=== PATIENT | male | born 1990 | race Caucasian/White ===

== ENCOUNTER 2020-02-24 22:06 | Emergency (ER) | payer OTHER, SELFPAY ==
[2020-02-24 22:07] VITALS: BP 144/90; PULSE 111; RESP 16; TEMP 36.6; O2SAT 94; BMI 26.6
--- NOTE | 2020-02-24 22:22 | ED.VIS.GEN ---
History of Present Illness Chief Complaint: Substance Abuse Informant: Patient Narrative: Patient presents with detox request. He drinks alcohol daily. He has been alcoholic for over 10 years. Denies illegal drug use. Positive smoker. Drinks alcohol today. and family were able to get him to come in for further evaluation and detox and to try to get clean. Current severity is not applicable. Past Medical History - Allergies and Home Meds Allergies/Adverse Reactions: Allergies No Known Allergies Allergy (Verified 02/24/20 22:07) Prior records reviewed: Yes Past Medical History: - - Alcoholism Surgical History: noncontributory Lives: With Family Smoking Status: Former smoker Alcohol: Heavy Drugs: None Review of Systems General: Denies: Chills, Fever, Sweats Eyes: Denies: Visual changes - bilaterally, Diplopia ENT: Denies: Rhinorrhea, Sore throat Cardiovascular: Denies: Chest pain, Palpitations Respiratory: Denies: Dyspnea, Cough, Dyspnea on exertion Gastrointestinal: Denies: Abdominal pain, Nausea, Vomiting, Diarrhea, Melena, Hematochezia Genitourinary: Denies: Dysuria, Hematuria, Frequency Musculoskeletal: Denies: Back pain, Extremity Pain Skin: Denies: Rash, Wounds Neurological: Denies: Headache, Weakness, Numbness Physical Exam Vital Signs/Narrative: Vital Signs Temp Pulse Resp BP Pulse Ox 02/24/20 22:07 97.9 F 111 H 16 144/90 H 94 General: Well nourished, Well developed, No Acute Distress Head: Normocephalic, Atraumatic Eyes: Perrl, EOMI ENT: Moist mucous membranes, No rhinorrhea Neck: Supple, Nontender Cardiovascular: Regular rate, Regular rhythm, No murmurs Respiratory: No distress, CTA bilaterally, Chest nontender Abdomen: Soft, Nontender, Nondistended, Normal bowel sounds Back: Nontender, Normal Inspection Extremities: Nontender, No edema Skin: Normal color, No rash Neurological: Alert, Oriented x3, Cranial nerves II-XII grossly intact, Normal Strength, Normal Sensation, - - Intoxicated with alcohol Psychological: Normal affect, Normal Mood Diagnostic/Tx/Re-eval - Medical Decision Making Requesting to detox. Lab work obtained. Will be discussed with the hospitalist for admission for alcohol detox. Alcohol level was 446. CBC and CMP otherwise grossly unremarkable. Liver function test normal. Toxicology screen normal ED Disposition - Plan for ED Patient: Disposition: Acute Care Hospital [facility] Diagnosis: Alcoholism, Acute alcohol intoxication
[2020-02-24 23:14] LABS: Amphetamine Urine VISTA NEGATIVE (<1000 ng/mL); Barbiturate Urine VISTA NEGATIVE (< 200 ng/mL); Benzodiazepine Urine VISTA NEGATIVE (< 200 ng/mL); Cocaine Urine VISTA NEGATIVE (< 300 ng/mL); Ecstacy Urine VISTA NEGATIVE (< 500 ng/mL); Methadone Urine VISTA NEGATIVE (< 300 ng/mL); PCP Urine VISTA NEGATIVE (< 25 ng/mL); THC Urine VISTA NEGATIVE (< 50 ng/mL); Vista UDS pH Range 6
[2020-02-24 23:17] LABS: Absolute Lymphocyte Count 2.13 X10^3/uL (0.83-4.51); Absolute Neutrophil Count 2.4 X10^3/uL (2.0-7.7); Basophil# 0.03 X10^3/uL; Basophil% 0.6 % (0-1); Eosinophil# 0.17 X10^3/uL; Eosinophils% 3.4 % (0-5); Lymphocyte # 2.13 X10^3/ul (4.0); Lymphocyte % 42.5 % (19-41); Mean Corp Hgb Conc 35.6 g/dL (32-36); Mean Corpuscular Hgb 32.8 pg (27.0-32.0); Mean Corpuscular Volume 92.2 fL (80-94); Monocyte# 0.24 X10^3/uL; Monocyte% 4.8 % (0-10); NRBC Flagged by Analyzer 0 % (0-5); Neutrophil # 2.43 X10^3/uL (2.7-7.7); Neutrophil % 48.5 % (47-70); Platelet Count 307 K/mm3 (150-450); RBC Distribution Width CV 11.3 % (11.6-14.6); RBC Distribution Width SD 37.8 fl (35.1-43.9); Red Blood Count 4.88 M/mm3 (4.6-6.2)
--- NOTE | 2020-02-24 23:19 | ED.RN ---
reviewed care agreement with and pt. pt is intoxicated, scribbled his name on paper, signed as well stating that the paper was reviewed with her and pt.
[2020-02-24 23:38] LABS: ALB/GLOB Ratio 1.5 RATIO (0.9-2.4); AST(SGOT) 31 U/L (15-37); Alanine Aminotransfer ALT/SGPT 38 U/L (16-61); Albumin, Serum 4.4 g/dL (3.2-5.0); Alkaline Phosphatase 64 U/L (45-117); Anion Gap 11 (5-15); BUN 4 mg/dL (7-18); BUN/Creat Ratio 4.4 RATIO (10-20); Calcium,Total 7.9 mg/dL (8.5-10.1); Chloride 107 mmol/L (98-107); EST Glomerular Filtration Rate 105 mL/min (>60); Est Glom Filt Rate - Afr Amer 128 mL/min (>60); Estimated Creatinine Clearance 128.99 ml/min; Glucose 125 mg/dL (74-106); Potassium 3.8 mmol/L (3.5-5.1); Protein, Total 7.4 g/dL (6.4-8.2); Sodium Level 142 mmol/L (136-145)
[2020-02-25 00:42] VITALS: BP 114/55; PULSE 80; RESP 16; O2SAT 92
--- NOTE | 2020-02-25 01:24 | PCM.PN.BLA ---
Progress Note Paged to admit patient. Case was discussed with emergency department doctor. Reportedly patient's family encourage patient to come to the hospital for detoxification from alcohol. Patient was seen. Patient appears very intoxicated. Patient was sleeping. Advised emergency department doctor that when patient is no longer intoxicated detoxification can be started. STROKE Vital Signs/Narrative: Vital Signs Temp Pulse Resp BP Pulse Ox 02/25/20 00:42 80 16 114/55 L 92 02/24/20 22:07 97.9 F 111 H 16 144/90 H 94
[2020-02-25 02:00] VITALS: RESP 14
[2020-02-25 04:24] VITALS: PULSE 80; RESP 14
--- NOTE | 2020-02-25 07:06 | HP.PCM_ITS ---
History of Present Illness Date of Admission: 02/25/20 Chief Complaint: Acute alcohol withdrawal/detox The patient is a 29 year old M [] Past Medical History Allergies No Known Allergies Allergy (Verified 02/24/20 22:07) Home Medications: Ambulatory Orders Medication Instructions Recorded No Known/Unobtainable [No Known 08/15/15 Home Medications] Surgical History: noncontributory Lives: With Family Smoking Status: Current every day smoker Alcohol: Heavy Drugs: None Patient Problems: Active and Suspected Problems Alcoholism (Acute) Acute alcohol intoxication (Acute) - Physical Exam Vitals/I&O's: Vital Signs Temp Pulse Resp BP Pulse Ox 97.9 F 80 14 114/55 L 92 02/24/20 22:07 02/25/20 04:24 02/25/20 04:24 02/25/20 00:42 02/25/20 00:42 Oxygen Delivery Method Room Air Weight: 190 lb 14.725 oz Body Mass Index (BMI) 26.6 Laboratory Results 02/24/20 22:40: Urine Opiates Screen NEGATIVE, Urine Methadone Screen NEGATIVE, Ur Barbiturates Screen NEGATIVE, Ur Phencyclidine Scrn NEGATIVE, Ur Amphetamines Screen NEGATIVE, U Methamphetamin-MDMA NEGATIVE, U Benzodiazepines Scrn NEGATIVE, Urine Cocaine Screen NEGATIVE, U Cannabinoids Screen NEGATIVE, Ur Drug Screen Comment 02/24/20 23:10: WBC 5.0, RBC 4.88, Hgb 16.0, Hct 45.0, MCV 92.2, MCH 32.8 H, MCHC 35.6, RDW Std Deviation 37.8, RDW Coeff of [place] 11.3 L, Plt Count 307, MPV 10.0, Immature Gran % (Auto) 0.200, Neut % (Auto) 48.5, Lymph % (Auto) 42.5 H, [place] % (Auto) 4.8, Eos % (Auto) 3.4, Baso % (Auto) 0.6, Absolute Neuts (auto) 2.4, Absolute Lymphs (auto) 2.13, Nucleated RBC % 0 02/24/20 23:10: Sodium 142, Potassium 3.8, Chloride 107, Carbon Dioxide 24.0, Anion Gap 11, BUN 4 L, Creatinine 0.90, Estim Creat Clear Calc 128.99, Est GFR (MDRD) Af Amer 128, Est GFR (MDRD) Non-Af 105, BUN/Creatinine Ratio 4.4 L, Glucose 125 H, Calcium 7.9 L, Total Bilirubin 0.40, AST 31, ALT 38, Alkaline Phosphatase 64, Total Protein 7.4, Albumin 4.4, Globulin 3.0, Albumin/Globulin Ratio 1.5 02/24/20 23:10: Ethyl Alcohol 446.0 H* Assessment/Plan All Active Problems Alcoholism (Acute) Acute alcohol intoxication (Acute)
--- NOTE | 2020-02-25 07:57 | ED.RN ---
pt alert and has no recall of last night getting here or agreeing to detox. states i had a dream that i talked my family out of coming here and then i wake up and im here. pt reluctant to do detox. concerns about work and having to talk to them about it. dr gaytan at bedside and discussed HIPPA and plan of care. dangers of ETOH withdrawl and safety. pt requesting to call and talk with prior to agreeing to admission. given portable phone, talking with at this time.
[2020-02-25 08:01] VITALS: BP 132/86; PULSE 89; RESP 16; O2SAT 99
--- NOTE | 2020-02-25 08:12 | ED.RN ---
pt talked with . choosing not to stay. dr gaytan/supervisor pleating notified. dr guardado. pt to be dc home
--- NOTE | 2020-02-25 13:21 | PCM.HOSP.N ---
Hospitalist Note Contacted per ED as patient more alert and amenable to program. Evaluated and admission orders placed. Patient upon evaluation noting he wanted to discuss admission with his first. Noted concern about being out of work x 3 days. Patient left from ED despite encouragement. His strongly encouraged him to remain. They have a 13 week old baby at home and he noted concerns about not being present for 3 days also.
== END 2020-02-25 08:23 | disposition short-term general hospital (02) ==
PROVIDERS: Emergency Provider Emergency Medicine; PCP Family Medicine; Visit Provider Family Medicine
DX: F10.20 Alcohol dependence, uncomplicated (principal); F17.210 Nicotine dependence, cigarettes, uncomplicated
CPT/HCPCS: 36415; 80053; 80307; 80320; 85025; 99282; G0480

== ENCOUNTER → 2020-05-15 | Outpatient (CLI) | payer OTHER, SELFPAY | END | disposition home or self-care (01) | PROVIDERS: PCP Family Medicine; Referring Provider Family Medicine; Visit Provider Family Medicine | DX: Z20.828 Contact with and (suspected) exposure to other viral communicable diseases (principal) | CPT/HCPCS: 87635; U0003 ==

== ENCOUNTER 2021-01-19 22:11 | Emergency (ER) | payer OTHER, SELFPAY ==
[2021-01-19 22:12] VITALS: BP 126/77; PULSE 74; RESP 18; TEMP 36.3; O2SAT 100; BMI 24.4
--- NOTE | 2021-01-19 22:34 | EX.ED.DYSGE1 ---
HPI History of Present Illness Chief Complaint: General Illness Narrative Narrative: Patient presents with intoxication from CBD. He bought some CBD oil online and used it several hours ago. He is feeling the effects of it. He normally eats Gummies and use a sublingual oil for the first time. He feels overly relaxed and funny in his head. He denies any chest pain or shortness of breath or other symptoms. No nausea or vomiting. Denies any other illicit drug use. Does not use marijuana. Does not feel high just feels strange and has had from the use of CBD PFSH PFSH Home Medications No Known/Unobtainable [No Known Home Medications] 08/15/15 [History Last Taken Unknown] Allergy/AdvReac Type Severity Reaction Status Date / Time No Known Allergies Allergy Verified 01/19/21 22:14 Social History Smoking Status: Current every day smoker ROS ROS ED ROS Narrative ROS General: Denies fever, chills, sweats Eyes: Denies visual changes, blurred vision, double vision ENT: Denies ear pain, rhinorrhea, sore throat Cardiovascular: Denies chest pain, palpitations, heart racing Respiratory: Denies dyspnea, cough, sputum, dyspnea on exertion, orthopnea,PND GI: Denies abdominal pain, nausea, vomiting, diarrhea, constipation, melena : Denies dysuria, hematuria, frequency Musculoskeletal: Denies myalgias, arthralgias, neck pain, back pain Skin: Denies rash, abscess, abrasions Neuro: See HPI Psych: Denies depression, anxiety Endo: Denies polyuria, polydipsia, polyphagia Heme: Denies easy bruising, easy bleeding, lymphadenopathy Allergy: Denies hives, swelling EXAM Physical Exam Narrative Exam Narrative: Vital signs reviewed General: Well-nourished well-developed Head: Normocephalic atraumatic Eyes: Pupils equal round and reactive to light extraocular movements intact ENT: TMs clear no hemotympanum no trauma Neck: Nontender full range of motion Cardiovascular: Regular rate rhythm no murmurs normal S1-S2 Respiratory: No distress clear to auscultation bilaterally chest nontender Abdomen: Soft nontender nondistended normal bowel sounds no masses Back: Nontender no CVA tenderness Extremities: Nontender active range of motion ?4 extremities no trauma Skin: Normal color no trauma Neuro alert oriented cranial nerves II through XII intact normal strength sensation reflexes Const Vital Signs: 01/19/21 22:12 Temperature 97.3 F L Temperature Source Temporal Pulse Rate 74 Respiratory Rate 18 Blood Pressure 126/77 H Blood Pressure Mean 93 Pulse Ox 100 Oxygen Delivery Method Room Air MDM MDM MDM Narrative Medical decision making narrative: Patient reassured. He has normal vital signs. I suspect he just has CBD intoxication. We will follow-up as an outpatient. Instructed not to use in this quantity or fashion in the future Discharge Plan Triage Chief Complaint: General Illness ED Provider: Cyrus Becerril Dx/Rx/DC Orders Clinical Impression: Acute drug intoxication Instructions: ED Drug Reaction, Other Prescriptions: No Action No Known Home Medications RF: 0 Primary Care Provider: Denny Villavicencio Referrals: Denny Villavicencio MD [Primary Care Provider] - Disposition Disposition: Home, self care
[2021-01-19 22:50] VITALS: RESP 18
== END 2021-01-19 22:53 | disposition home or self-care (01) ==
LOC: ED 22:47
PROVIDERS: Emergency Provider Emergency Medicine; PCP Family Medicine
DX: F12.929 Cannabis use, unspecified with intoxication, unspecified (principal); F17.200 Nicotine dependence, unspecified, uncomplicated
CPT/HCPCS: 99282

== ENCOUNTER → 2021-05-01 13:02 | Outpatient (CLI) | payer OTHER, SELFPAY | LOC: LAB 13:05 → MTLAB 13:05 | PROVIDERS: PCP Family Medicine; Referring Provider Family Medicine; Visit Provider Family Medicine | DX: U07.1 COVID-19 (principal) | CPT/HCPCS: 36415; 86769 ==

== ENCOUNTER → 2022-07-06 | Outpatient (CLI) | payer OTHER, SELFPAY ==
[2022-07-14 14:09] LABS: Beef <0.10 kU/L (Class 0); Clam <0.10 kU/L (Class 0); Codfish <0.10 kU/L (Class 0); Corn <0.10 kU/L (Class 0); Crab <0.10 kU/L (Class 0); Egg, White <0.10 kU/L (Class 0); Gluten <0.10 kU/L (Class 0); Lobster <0.10 kU/L (Class 0); Milk (Cow) <0.10 kU/L (Class 0); Peanut <0.10 kU/L (Class 0); SCALLOP <0.10 kU/L (Class 0); SESAME SEED <0.10 kU/L (Class 0); Salmon <0.10 kU/L (Class 0); Shrimp <0.10 kU/L (Class 0); Soybean <0.10 kU/L (Class 0); Walnut, (Food) <0.10 kU/L (Class 0); Wheat <0.10 kU/L (Class 0); Yeast <0.10 kU/L (Class 0)
[2022-07-14 16:34] LABS: Banana <0.10 kU/L (Class 0)
== END | disposition home or self-care (01) ==
LOC: LAB 09:06
PROVIDERS: PCP Family Medicine; Referring Provider Otolaryngology Otolaryngology/Facial Plastic Surgery; Visit Provider Otolaryngology Otolaryngology/Facial Plastic Surgery
DX: T78.40XA Allergy, unspecified, initial encounter (principal); X58.XXXA Exposure to other specified factors, initial encounter
CPT/HCPCS: 36415; 86003

== ENCOUNTER → 2022-08-11 | Outpatient (CLI) | payer OTHER, SELFPAY ==
[2022-08-11 12:14] LABS: Absolute Lymphocyte Count 0.91 X10^3/uL (0.83-4.51); Absolute Neutrophil Count 2.4 X10^3/uL (2.0-7.7); Basophil# 0.02 X10^3/uL; Basophil% 0.6 % (0-1); Eosinophil# 0.04 X10^3/uL; Eosinophils% 1.1 % (0-5); Hematocrit 40.8 % (40-54); Hemoglobin 14.7 g/dL (13.0-16.5); Lymphocyte # 0.91 X10^3/ul (0.83-4.51); Lymphocyte % 25.1 % (19-41); Mean Corpuscular Hgb 32.5 pg (27.0-32.0); Mean Corpuscular Volume 90.3 fL (80-94); Mean Platelet Vol. 11.6 fl (6.2-12.0); Monocyte# 0.26 X10^3/uL; Monocyte% 7.2 % (0-10); NRBC Flagged by Analyzer 0 % (0-5); Neutrophil # 2.39 X10^3/uL (2.7-7.7); Neutrophil % 65.7 % (47-70); Platelet Count 259 K/mm3 (150-450); RBC Distribution Width SD 36.7 fl (35.1-43.9); Red Blood Count 4.52 M/mm3 (4.6-6.2); White Blood Count 3.6 K/mm3 (4.4-11.0)
[2022-08-11 12:31] LABS: ALB/GLOB Ratio 1.6 RATIO (0.9-2.4); AST(SGOT) 40 U/L (15-37); Alanine Aminotransfer ALT/SGPT 42 U/L (16-61); Albumin, Serum 4.2 g/dL (3.2-5.0); Alkaline Phosphatase 40 U/L (45-117); Anion Gap 8 (5-15); BUN 7 mg/dL (7-18); BUN/Creat Ratio 7.3 RATIO (10-20); Calcium,Total 8.6 mg/dL (8.5-10.1); Chloride 101 mmol/L (98-107); Creatinine, Serum 0.96 mg/dL (0.70-1.30); EST Glomerular Filtration Rate 97 mL/min (>60); Est Glom Filt Rate - Afr Amer 117 mL/min (>60); Globulin 2.7 g/dL (2.2-4.2); Glucose 107 mg/dL (74-106); Potassium 4.4 mmol/L (3.5-5.1); Protein, Total 6.9 g/dL (6.4-8.2); Sodium Level 135 mmol/L (136-145)
== END | disposition home or self-care (01) ==
LOC: BFHLAB 09:16
PROVIDERS: PCP Family Medicine; Visit Provider Family Medicine
DX: Z00.00 Encounter for general adult medical examination without abnormal findings (principal)
CPT/HCPCS: 36415; 80053; 85025

== ENCOUNTER → 2022-12-16 | Outpatient (CLI) | payer OTHER, SELFPAY ==
--- NOTE | 2022-12-16 07:45 | MRI_ITS ---
STUDY: MRI LUMBAR SPINE WITHOUT CONTRAST REASON FOR EXAM: Male, 32 years old. RIGHT foot drop, LBP TECHNIQUE: Standardized fat and water weighted pulse sequences were obtained in the sagittal and axial planes. COMPARISON: X-ray the lumbar spine dated December 10, 2022 FINDINGS: Normal lumbar lordosis. There is no substantial scoliosis. Normal conus medullaris that terminates at the L1 level. No marrow edema or fracture or compression deformity is seen. T12-L1: Normal endplates. Normal disc height, hydration and morphology. Normal bilateral facet joints. Normal central canal and bilateral lateral recesses. Normal bilateral intervertebral neural foramina. L1-2: Normal endplates. Normal disc height, hydration and morphology. Normal bilateral facet joints. Normal central canal and bilateral lateral recesses. Normal bilateral intervertebral neural foramina. L2-3: Normal endplates. Normal disc height, hydration and morphology. Normal bilateral facet joints. Normal central canal and bilateral lateral recesses. Normal bilateral intervertebral neural foramina. L3-4: Normal endplates. Normal disc height, hydration and morphology. Normal bilateral facet joints. Normal central canal and bilateral lateral recesses. Normal bilateral intervertebral neural foramina. L4-5: Normal endplates. Diffuse disc desiccation with mild to moderate posterior disc space narrowing resulting in broad-based disc herniation. Posterior annular tear of the disc also noted. Mild central canal stenosis and bilateral lateral recess stenosis. Mild facet joint hypertrophy and bilateral foraminal stenosis. L5-S1: Mild Modic endplate degenerative signal. Disc desiccation and mild posterior disc space narrowing results in a midline to right paracentral disc protrusion causing right lateral recess stenosis and impingement on the descending nerve root. Normal central canal and left lateral recess. Mild facet joint hypertrophy. Moderate right foraminal stenosis with nerve root impingement secondary to facet joint hypertrophy. Normal left neural foramen. Normal visualized sacral ala. Normal visualized paraspinous soft tissue structures. MRI/Spine Lumbar (Routine) IMPRESSION: 1. L4-L5 and L5-S1 degenerative disc disease 2. Mild central canal stenosis at L4-L5 3. Right lateral recess stenosis with nerve root impingement at L5-S1 4. L5-S1 moderate right foraminal stenosis with nerve root compression Electronically Signed: Rip Westbrook MD at 12:35 EDT ,
== END | disposition home or self-care (01) ==
PROVIDERS: PCP Family Medicine; Referring Provider Orthopaedic Surgery; Visit Provider Orthopaedic Surgery
DX: M21.371 Foot drop, right foot (principal); M51.37 Other intervertebral disc degeneration, lumbosacral region; M48.07 Spinal stenosis, lumbosacral region
CPT/HCPCS: 72148

== ENCOUNTER 2023-09-23 16:00 | Outpatient (RCR) | payer OTHER, SELFPAY ==
--- NOTE | 2023-09-15 11:23 | HP.PTEVAL_ITS ---
Patient's Visit Information Visit Information Visit Information: TREY GRIMES is a 33 year old M referred to Physical Therapy by Dr. Primo Hunter DO with a diagnosis of OTHER INTERVERTBRAL DISC DEGENERATION. Date of Evaluation: 09/15/23 Physical Therapist: Ishaan Weaver, PT, Cert MDT, OCS Visit Plan Frequency: 1-2x /Week Duration: 4 Weeks Plan: PT INTERVETIONS BIGG EX'S ,DLS ,POSTURAL EX'S ,POSTURE/BODY MECHANICS AND MANUAL THERAPY Subjective Subjective: This 33 y/o male presents to physical therapy with low back. Patient has had lumbar pain Jun 27 2023 . Patient injury strained lumbar reaching in crib to filler picker new born. Seen Dr referred DR Jerez had MRI showed mod foraminal stenosis and bulging. Try to manage pain on own . Recently seen family DR due to symptoms getting. Location of pain right lumbar. Patient has stiffness tightness . Patient initially wanted see DR Jerez with foot drop . But foot drop improved. Aggregating factors bending ,lifting ,sitting . Patient better with walking/standing. Coughing/sneezing. Bowel/bladder-. Denies paresthesia/tingling -. Sleeping cam keep patient up. Alleviating factors e xtension. Patient has no pain management . Patient goals to affects function. Patient goals to decrease pain. VOCATION: [employer] SOCIAL: Pain Right Back: Pain Intensity (Out of 10): 5 Pain Intensity Range: 10 Objective Objective: POSTURE:WFL SYMMTRICAL: align PALAPTION: unremarkable NEURO: myotome weakness right leg ,reflexes L-3-4,L4-L5 ,L5-S1 2/3 FLEXABILITY: hamstrings min tight MMT: right quads/hams/hip /ankle 4/5 ,left 5/5 shaky on right LUMBAR ROM: flexion min loss ,extension min loss ,side glides min loss Special Tests L/S Slump test left side: Negative L/S Slump test right side: Positive L/S Left Straight Leg Raise: Negative L/S Right Straight Leg Raise: Negative Lumbar Standing: Flexion - Mechanical Response: No effect Lumbar Standing: Flexion - Symptoms During Testing: Increases Lumbar Standing: Flexion - Symptoms After Testing: Worse Lumbar Standing: Extension - Mechanical Response: No effect Lumbar Standing: Extension - Symptoms During Testing: Increases Lumbar Standing: Extension - Symptoms After Testing: No worse Lumbar Standing: Right Side Glides - Mechanical Response: No effect Lumbar Standing: Right Side [place] - Symptoms During Testing: No effect Lumbar Standing: Right Side [place] - Symptoms After Testing: No effect Lumbar Standing: Left Side [place] - Mechanical Response: No effect Lumbar Standing: Left Side [place] - Symptoms During Testing: No effect Lumbar Standing: Left Side [place] - Symptoms After Testing: No effect Lumbar Lying: Flexion - Mechanical Response: No effect Lumbar Lying: Flexion - Symptoms During Testing: Increases Lumbar Lying: Flexion - Symptoms After Testing: Worse Lumbar Lying: Extension - Mechanical Response: No effect Lumbar Lying: Extension - Symptoms During Testing: Decreases Lumbar Lying: Extension - Symptoms After Testing: Better Balance/Special Test Scores Oswestry Low Back Score: 22 Goals Goal 1:: Patient to be I with HEP Goal Time Frame: 4-6 Weeks Goal 2:: Patient to improve posture/body mechanics 90 % of the time. Goal Time Frame: 4-6 Weeks Goal 3:: Patient to improve lumbar ROM for function of recovery to lift patients children Goal Time Frame: 4-6 Weeks Goal 4:: Patient to demonstrate 70% improvement with less pain and improved f unction Goal Time Frame: 4-6 Weeks Goal 5:: Patient to improve back oswestry score by 5 points to improve QOL and function Goal Time Frame: 4-6 Weeks Rehabilitation Potential Physical Therapy Diagnosis: This patient has derangement with disc bulge and and mod foraminal stenosis with pain with motion testing and positioning ,worse with sitting better with extension better with walking and correction of posture thus benefit from skilled PT Rehabilitation Potential: Good Anticipated Interventions Patient/Client Instruction: Educate patient on: Condition and Plan of Care For the Purpose of:: To decrease pain, To increase ROM, To improve muscle performance and motor function, To improve ability to perform ADL's, To increase tolerance to activity/condition/position, To improve ability of physical actions for home/community/work/leisure, To improve health of tissue, To decrease soft tissue restriction, To increase flexibility/ROM, To improve endurance, To reduce risk of recurrence and To improve tolerance to ADL's Therapeutic Exercise to Include: Strength training, Endurance training, Balance training, Body mechanics, Postural training, Flexibilty training, Dynamic Lumbar Stabilization and Bigg Exercises For the Purpose of:: To decrease pain, To improve muscle performance and motor function, To improve ability to perform ADL's, To increase tolerance to activity/condition/position, To improve ability of physical actions for home/community/work/leisure, To improve health of tissue, To decrease soft tissue restriction, To increase flexibility/ROM, To improve endurance, To reduce risk of recurrence and To improve tolerance to ADL's Manual Therapy Techniques to Include: Manual lymph drainage For the Purpose of:: To decrease pain, To increase ROM, To improve ability of physical actions for home/community/work/leisure, To improve health of tissue, To decrease soft tissue restriction and To increase flexibility/ROM TENS: Yes IF ES: Yes Cryotherapy (ice pack, ice massage): Yes Thermo therapy (hot pack): Yes Ultrasound (thermal/non thermal): Yes For the Purpose of:: To decrease pain Text: Thank you for the opportunity to evaluate your patient. For Medicare and Medicare HMO plans, please review the plan of care and approve it. It will need to be FAXED BACK to us at [phone] for Medicare purposes. For Medicare only, by signing this I certify the plan of care. Please let me know if there are questions or concerns regarding this plan of care. Physician Signature: Date:
--- NOTE | 2023-12-20 16:47 | HP.PT.NRP ---
Patient Information Patient Information: TREY GRIMES was seen in my office for initial evaluation on 09/15/23. The following Plan of Care was established for this patient: POC Established Initial Frequency: 1-2x /Week Initial Duration: 4 Weeks Anticipated Interventions Patient/Client Instruction: Educate patient on: Condition and Plan of Care For the Purpose of:: To decrease pain, To increase ROM, To improve muscle performance and motor function, To improve ability to perform ADL's, To increase tolerance to activity/condition/position, To improve ability of physical actions for home/community/work/leisure, To improve health of tissue, To decrease soft tissue restriction, To increase flexibility/ROM, To improve endurance, To reduce risk of recurrence and To improve tolerance to ADL's Therapeutic Exercise to Include: Strength training, Endurance training, Balance training, Body mechanics, Postural training, Flexibilty training, Dynamic Lumbar Stabilization and [place]ila Exercises For the Purpose of:: To decrease pain, To improve muscle performance and motor function, To improve ability to perform ADL's, To increase tolerance to activity/condition/position, To improve ability of physical actions for home/community/work/leisure, To improve health of tissue, To decrease soft tissue restriction, To increase flexibility/ROM, To improve endurance, To reduce risk of recurrence and To improve tolerance to ADL's Manual Therapy Techniques to Include: Manual lymph drainage For the Purpose of:: To decrease pain, To increase ROM, To improve ability of physical actions for home/community/work/leisure, To improve health of tissue, To decrease soft tissue restriction and To increase flexibility/ROM TENS: Yes IF ES: Yes Cryotherapy (ice pack, ice massage): Yes Thermo therapy (hot pack): Yes Ultrasound (thermal/non thermal): Yes For the Purpose of:: To decrease pain Last Seen Last Seen: This patient was last seen in our office . Pertinent comments regarding their Physical therapy will appear below: Patient was seen for PT for back pain with radicular symptoms for sheila ex's with progression of DLS At this point I will be discontinuing this patient from physical therapy. I would be happy to see this patient again in the future if found appropriate by the physician. Thank you! Ishaan Weaver, PT, Cert MDT, OCS Balance/Gait/Functional tests Balance/Special Test Scores Oswestry Low Back Score: 22
== END 2023-09-23 19:00 | disposition home or self-care (01) ==
LOC: PT 16:00
PROVIDERS: PCP Family Medicine; Referring Provider Family Medicine; Visit Provider Family Medicine
DX: M51.36 Other intervertebral disc degeneration, lumbar region (principal)
CPT/HCPCS: 97110; 97162; 97530

== ENCOUNTER 2024-03-12 14:32 | Observation (INO) | payer OTHER, SELFPAY ==
[2024-03-12] VITALS (8 sets, daily range): BP systolic 129–155; BP diastolic 79–94; PULSE 86–112; RESP 16–18; TEMP 36.4–36.7; O2SAT 97–100; BMI 24.0; BMI 22.8
--- NOTE | 2024-03-12 14:54 | EDS_ITS ---
HPI <VERNA Gonzales - Last Filed: 03/12/24 18:48> History of Present Illness Chief Complaint: Substance Abuse Narrative Narrative: 33-year-old male presents to get checked out because he wants to stop using kratom and workout stimulants and was not sure if he could do this at home on his own safely. He orally ingests kratom powder approximately 15 g 4 times a day over the last 6 weeks. He uses it to treat his anxiety and depression. He states he has used it in the past and stopped without withdrawal symptoms except for worsening depression. He also takes supplements called DMMA (1,3- dimethylamylamine) that he buys online and is also prescribed Adderall. [facility] <VERNA Gonzales - Last Filed: 03/12/24 18:48> [facility] Medical History (Updated 03/12/24 @ 18:[address] Sukh Forbes MD) Herniated disc ADHD Home Medications ?Medication ?Instructions ?Recorded ?Last Taken ?Type No Known/Unobtainable [No Known 08/15/15 Unknown History Home Medications] Allergy/AdvReac Type Severity Reaction Status Date / Time No Known Allergies Allergy Verified 03/12/24 14:39 Social History household members: family and children Smoking Status: Current every day smoker tobacco type: e-cigarettes ROS <VERNA Gonzales - Last Filed: 03/12/24 18:48> ROS ED ROS Narrative Constitutional: Negative for fever, chills, malaise. CVS: Negative for chest pain. Respiratory: Negative for shortness of breath. GI: Negative for abdominal pain, nausea, vomiting, diarrhea. EXAM <VERNA Gonzales - Last Filed: 03/12/24 18:48> Physical Exam Narrative Exam Narrative: CONST: Patient sitting in no acute distress. EYES: Normal inspection. NECK: Normal inspection. RESP: No respiratory distress, CTAB. CVS: Regular rate and rhythm, no murmur, no gallop. SKIN: Color normal, no rash, warm, dry, intact. EXTREMITIES: Normal appearance, no pedal edema. NEURO: Alert and answering questions appropriately. PSYCH: Normal affect. Const Vital Signs: 03/12/24 14:32 03/12/24 15:32 03/12/24 16:32 Temperature 97.6 F L Temperature Source Temporal Pulse Rate 112 H 100 108 H Respiratory Rate 16 16 16 Blood Pressure 135/81 H 129/94 H Blood Pressure Mean 99 105 Pulse Ox 100 98 99 Oxygen Delivery Method Room Air Room Air Room Air 03/12/24 17:00 Temperature Temperature Source Pulse Rate 102 H Respiratory Rate 16 Blood Pressure Blood Pressure Mean Pulse Ox 99 Oxygen Delivery Method Room Air <Dr. Sukh Forbes MD - Last Filed: 03/12/24 18:39> Physical Exam Const Vital Signs: 03/12/24 14:32 03/12/24 15:32 03/12/24 16:32 Temperature 97.6 F L Temperature Source Temporal Pulse Rate 112 H 100 108 H Respiratory Rate 16 16 16 Blood Pressure 135/81 H 129/94 H Blood Pressure Mean 99 105 Pulse Ox 100 98 99 Oxygen Delivery Method Room Air Room Air Room Air 03/12/24 17:00 Temperature Temperature Source Pulse Rate 102 H Respiratory Rate 16 Blood Pressure Blood Pressure Mean Pulse Ox 99 Oxygen Delivery Method Room Air MDM <VERNA Gonzales - Last Filed: 03/12/24 18:48> [facility] MDM Narrative Medical decision making narrative: Patient seen and evaluated with BUD. I personally interviewed and examined the patient. I was involved in all aspects of patient's orders, interpretation of results, and treatment. 33-year-old male with history of alcohol abuse but has been sober from that for about 18 months. He is using substance kratom. He is trying to detox himself from that. on the phone states that he gets paranoid when he uses it. Th ey are concerned because they have 2 small children at home about him trying to detox himself at home. Physical exam is a well-appearing 33-year-old male. Vital signs stable afebrile. HEENT exam unremarkable. Neck nontender. Lungs clear to auscultation. Heart regular rhythm rate about 100 no murmur. Chest wall ribs nontender. Moving all 4 extremities. No track quiles. Back nontender. Fiona rologically is awake and alert. No focal motor deficits. Spoke to the hospitalist as well and admit the patient for detox for overnight evaluation. And symptom treatment as needed. Lab Data Labs: Laboratory Results - last 24 hr 03/12/24 15:05 WBC 7.6 RBC 4.79 Hgb 15.1 Hct 41.9 MCV 87.5 MCH 31.5 MCHC 36.0 RDW Std Deviation 36.7 RDW Coeff of Ciera 11.4 L Plt Count 318 MPV 10.4 Immature Gran % (Auto) 0.300 Neut % (Auto) 84.5 H Lymph % (Auto) 10.3 L Bee % (Auto) 4.5 Eos % (Auto) 0.1 Baso % (Auto) 0.3 Absolute Neuts (auto) 6.4 Absolute Lymphs (auto) 0.78 L Nucleated RBC % 0 Sodium 135 L Potassium 3.6 Chloride 101 Carbon Dioxide 27.0 Anion Gap 7 BUN 9 Creatinine 1.25 Estim Creat Clear Calc 89.52 Est GFR (MDRD) Af Amer 85 Est GFR (MDRD) Non-Af 70 BUN/Creatinine Ratio 7.2 L Glucose 127 H Calcium 8.8 Total Bilirubin 0.40 AST 24 ALT 30 Alkaline Phosphatase 61 Total Protein 7.3 Albumin 4.2 Globulin 3.1 Albumin/Globulin Ratio 1.4 <Dr. Sukh Forbes MD - Last Filed: 03/12/24 18:39> [facility] Narrative Medical decision making narrative: Patient seen and evaluated with BUD. I personally interviewed and examined the patient. I was involved in all aspects of patient's orders, interpretation of r esults, and treatment. 33-year-old male with history of alcohol abuse but has been sober from that for about 1618 months. He is using substance kratom. He is trying to detox himself from that. on the phone and he states that he gets paranoid when he uses it. They are concerned because they have 2 small children at home about him trying to detox himself at home. Physical exam is a well-appearing 33-year-old male. Vital signs stable afebrile. H EENT exam unremarkable. Neck nontender. Lungs clear to auscultation. Heart regular rhythm rate about 100 no murmur. Chest wall ribs nontender. Moving all 4 extremities. No track quiles. Back nontender. Neurologically is awake and alert. No focal motor deficits. Spoke to the hospitalist as well and admit the patient for detox for overnight evaluation. And symptom treatment as needed. History & Record Review Discussion w/independent historian: Patient Lab Data Attestation: I reviewed the patient's lab results. Lab results narrative: CBC normal. Electrolytes show sodium 135. Gap 7. Normal BUN and creatinine. Glucose 127. Liver enzymes are unremarkable. Labs: Laboratory Results - last 24 hr 03/12/24 15:05 WBC 7.6 RBC 4.79 Hgb 15.1 Hct 41.9 MCV 87.5 MCH 31.5 MCHC 36.0 RDW Std Deviation 36.7 RDW Coeff of Ciera 11.4 L Plt Count 318 MPV 10.4 Immature Gran % (Auto) 0.300 Neut % (Auto) 84.5 H Lymph % (Auto) 10.3 L Bee % (Auto) 4.5 Eos % (Auto) 0.1 Baso % (Auto) 0.3 Absolute Neuts (auto) 6.4 Absolute Lymphs (auto) 0.78 L Nucleated RBC % 0 Sodium 135 L Potassium 3.6 Chloride 101 Carbon Dioxide 27.0 Anion Gap 7 BUN 9 Creatinine 1.25 Estim Creat Clear Calc 89.52 Est GFR (MDRD) Af Amer 85 Est GFR (MDRD) Non-Af 70 BUN/Creatinine Ratio 7.2 L Glucose 127 H Calcium 8.8 Total Bilirubin 0.40 AST 24 ALT 30 Alkaline Phosphatase 61 Total Protein 7.3 Albumin 4.2 Globulin 3.1 Albumin/Globulin Ratio 1.4 Discharge Plan Dx/Rx/DC Orders Clinical Impression: Substance abuse, Desire for detoxification, Drug-induced paranoia or hallucinations Disposition Disposition: Acute Care Hospital [facility]
[2024-03-12 15:18] LABS: Absolute Lymphocyte Count 0.78 X10^3/uL (0.83-4.51); Absolute Neutrophil Count 6.4 X10^3/uL (2.0-7.7); Basophil# 0.02 X10^3/uL; Basophil% 0.3 % (0-1); Eosinophil# 0.01 X10^3/uL; Eosinophils% 0.1 % (0-5); Hematocrit 41.9 % (40-54); Hemoglobin 15.1 g/dL (13.0-16.5); Lymphocyte # 0.78 X10^3/ul (0.83-4.51); Lymphocyte % 10.3 % (19-41); Mean Corpuscular Hgb 31.5 pg (27.0-32.0); Mean Corpuscular Volume 87.5 fL (80-94); Mean Platelet Vol. 10.4 fl (6.2-12.0); Monocyte# 0.34 X10^3/uL; Monocyte% 4.5 % (0-10); NRBC Flagged by Analyzer 0 % (0-5); Neutrophil # 6.39 X10^3/uL (2.7-7.7); Neutrophil % 84.5 % (47-70); Platelet Count 318 K/mm3 (150-450); RBC Distribution Width CV 11.4 % (11.6-14.6); RBC Distribution Width SD 36.7 fl (35.1-43.9); Red Blood Count 4.79 M/mm3 (4.6-6.2); White Blood Count 7.6 K/mm3 (4.4-11.0)
[2024-03-12 15:34] LABS: ALB/GLOB Ratio 1.4 RATIO (0.9-2.4); AST(SGOT) 24 U/L (15-37); Alanine Aminotransfer ALT/SGPT 30 U/L (16-61); Albumin, Serum 4.2 g/dL (3.2-5.0); Alkaline Phosphatase 61 U/L (45-117); Anion Gap 7 (5-15); BUN 9 mg/dL (7-18); BUN/Creat Ratio 7.2 RATIO (10-20); Calcium,Total 8.8 mg/dL (8.5-10.1); Chloride 101 mmol/L (98-107); Creatinine, Serum 1.25 mg/dL (0.70-1.30); EST Glomerular Filtration Rate 70 mL/min (>60); Est Glom Filt Rate - Afr Amer 85 mL/min (>60); Estimated Creatinine Clearance 89.52 ml/min; Globulin 3.1 g/dL (2.2-4.2); Glucose 127 mg/dL (74-106); Potassium 3.6 mmol/L (3.5-5.1); Protein, Total 7.3 g/dL (6.4-8.2); Sodium Level 135 mmol/L (136-145)
--- NOTE | 2024-03-12 18:32 | HP.PCM.HOS_ITS ---
HPI - General General Date of Admission: 03/12/24 Date of Service: 03/12/24 HPI Narrative TREY GRIMES, with past medical history of substance abuse, right foot drop, degenerative disc disease is a 33 M who presents to the ED for concerns regarding withdrawal. He is here just to make sure that he does not have any withdrawal symptoms he uses kratom 15 g 4 times a day for the last 6 weeks he is to treat his anxiety and depression with it. He also uses DMM a device online and is prescribed Adderall for his anxiety. His vitals in the ED pulse 102, respiratory rate 16, oxygen saturation 99, on room air WBC 7.6, hemoglobin 15.1, platelet count 318, sodium 135, potassium 3.6, BUN 9, creatinine 1.2, glucose 127, albumin 4.2, globulin 3.1. Discussed this with his , she would also like a psychological evaluation while he is admitted in the hospital. His last kratom use was yesterday around noon [facility] Medical History (Updated 03/12/24 @ 18:[address] Sukh Forbes MD) Herniated disc ADHD Home Medications ?Medication ?Instructions ?Recorded ?Last Taken ?Type No Known/Unobtainable [No Known 08/15/15 Unknown History Home Medications] dextroamphetamine-amphetamine ER 1 cap PO DAILY adhd 03/12/24 Unknown History 30 mg 24hr capsule,extend release Allergy/AdvReac Type Severity Reaction Status Date / Time No Known Allergies Allergy Verified 03/12/24 14:39 Social History household members: family and children Smoking Status: Current every day smoker tobacco type: e-cigarettes ROS Review of Systems ROS Unobtainable: Denies due to encephalopathy, due to endotracheal tube, due to mental condition, due to mental status or other Constitutional Constitutional: Denies anorexia, change in weight, chills, fatigue, fever(s), malaise, night sweats, weakness or other Eyes Eyes: Denies blurry vision, change in eye color, change in vision, discharge from eye(s), double vision, erythema, eye pain, loss of vision or other ENT HEENT: Denies abnormal hearing, dysphagia, ear pain, epistaxis, headache(s), hearing loss, nasal congestion, nasal discharge, post nasal drip, sinus pressure, sore throat or other Cardiovascular Cardiovascular: Denies chest pain, claudication, dyspnea on exertion, edema, lightheadedness, orthopnea, palpitations, paroxysmal nocturnal dyspnea, rapid heart rate, syncope or other Respiratory/Chest Respiratory/Chest: Denies cough, dyspnea, excessive phlegm production, hemoptysis, productive cough, shortness of breath at rest, shortness of breath with exertion, wheezing or other Gastrointestinal Gastrointestinal: Denies abdominal pain, coffee ground emesis, constipation, diarrhea, dyspepsia, hematemesis, hematochezia, loose stools, melena, nausea, vomiting or other Genitourinary Genitourinary: Denies burning urination, difficulty urinating, dysuria, hematuria, nocturia, urinary frequency, urinary hesitancy, urinary incontinence, urinary urgency or other Musculoskeletal Musculoskeletal: Denies arthralgias, back pain, joint pain, joint stiffness, joint swelling, myalgias, neck pain or other Neurologic Neurologic: Denies abnormal gait, abnormal speech, confusion, disequilibrium, dizziness, focal weakness, headache(s), numbness, paresthesias, seizure-like activity, seizures, syncope, tingling, tremor(s) or other Psychiatric Psychiatric: Denies anxiety, depression, homicidal ideation, suicidal ideation or other Endocrine Endocrinology: Denies change in body appearance, cold intolerance, excessive sweating, heat intolerance, polydipsia, polyuria or other Hematologic/Lymphatic Hematologic/Lymphatic: Denies anemia, easy bleeding, easy bruising, lymphadenopathy or other Allergic/Immunologic Allergic/Immunologic: Denies rhinitis, hives, eczemia, asthma or other Vital Signs Vital Signs Vital Signs: 03/12/24 14:32 03/12/24 15:32 03/12/24 16:32 Temperature 97.6 F L Temperature Source Temporal Pulse Rate 112 H 100 108 H Respiratory Rate 16 16 16 Blood Pressure 135/81 H 129/94 H Blood Pressure Mean 99 105 Pulse Ox 100 98 99 Oxygen Delivery Method Room Air Room Air Room Air 03/12/24 17:00 Temperature Temperature Source Pulse Rate 102 H Respiratory Rate 16 Blood Pressure Blood Pressure Mean Pulse Ox 99 Oxygen Delivery Method Room Air Weight Weight: 172 lb 9.6 oz Body Mass Index (BMI) 24.0 Physical Exam Const alert, oriented x3 and no apparent distress HEENT normocephalic and head/scalp atraumatic Eyes PERRL and EOMs intact bilaterally Neck no lymphadenopathy Resp normal respiratory effort and no retractions Cardio regular rate and regular rhythm GI normal to inspection, nondistended, normoactive bowel sounds Extremity normal to inspection Neuro oriented x3 and CN's II-XII intact bilaterally Results Medical Records Data Attestation: I reviewed the patient's medical records Lab / Micro Data 03/12/24 15:05 03/12/24 15:05 Labs: Laboratory Results - last 24 hr 03/12/24 15:05: WBC 7.6, RBC 4.79, Hgb 15.1, Hct 41.9, MCV 87.5, MCH 31.5, MCHC 36.0, RDW Std Deviation 36.7, RDW Coeff of Ciera 11.4 L, Plt Count 318, MPV 10.4, Immature Gran % (Auto) 0.300, Neut % (Auto) 84.5 H, Lymph % (Auto) 10.3 L, Webb % (Auto) 4.5, Eos % (Auto) 0.1, Baso % (Auto) 0.3, Absolute Neuts (auto) 6.4, A bsolute Lymphs (auto) 0.78 L, Nucleated RBC % 0, Sodium 135 L, Potassium 3.6, Chloride 101, Carbon Dioxide 27.0, Anion Gap 7, BUN 9, Creatinine 1.25, Estim Creat Clear Calc 89.52, Est GFR (MDRD) Af Amer 85, Est GFR (MDRD) Non-Af 70, B UN/Creatinine Ratio 7.2 L, Glucose 127 H, Calcium 8.8, Total Bilirubin 0.40, AST 24, ALT 30, Alkaline Phosphatase 61, Total Protein 7.3, Albumin 4.2, Globulin 3.1, Albumin/Globulin Ratio 1.4 Assessment & Plan Assessment/Plan (1) Drug-induced paranoia or hallucinations: (2) Desire for detoxification: PLAN: Plan 33-year-old male with history of prior alcohol use disorder sober since 1 year presents to the ED for desire for detoxification from kratom use. He uses kratom daily and it is more for his anxiety and for strength building. He is being admitted for overnight observation as he is trying to quit Kratom use. #Daily addiction from kratom use -Last use was yesterday -Not experiencing any symptoms of withdrawal -Had similar episode of quitting kratom 6 months back when he had some diarrhea but no other concerns -Would like to be monitored overnight to ensure that he does not experience any symptoms - would like to get a psychological evaluation to help him with the addiction #Anxiety -Not on any medication -Encourage outpatient psychiatry evaluation #Prior alcohol use disorder -Last drink was about 12 to 14 months ago #Attention deficit hyperkinetic disorder: -On Adderall at home -Hold during this hospitalization #DVT risk: Low risk, encourage mobilization
[2024-03-12 20:47] LABS: Absolute Lymphocyte Count 1.24 X10^3/uL (0.83-4.51); Absolute Neutrophil Count 5.2 X10^3/uL (2.0-7.7); Basophil# 0.02 X10^3/uL; Basophil% 0.3 % (0-1); Eosinophil# 0.02 X10^3/uL; Eosinophils% 0.3 % (0-5); Hemoglobin 15.3 g/dL (13.0-16.5); Lymphocyte # 1.24 X10^3/ul (0.83-4.51); Lymphocyte % 18.2 % (19-41); Mean Corp Hgb Conc 35.6 g/dL (32-36); Mean Corpuscular Hgb 31.4 pg (27.0-32.0); Mean Corpuscular Volume 88.1 fL (80-94); Mean Platelet Vol. 10.5 fl (6.2-12.0); Monocyte# 0.32 X10^3/uL; Monocyte% 4.7 % (0-10); NRBC Flagged by Analyzer 0 % (0-5); Neutrophil # 5.22 X10^3/uL (2.7-7.7); Neutrophil % 76.4 % (47-70); Platelet Count 336 K/mm3 (150-450); RBC Distribution Width CV 11.4 % (11.6-14.6); RBC Distribution Width SD 36.6 fl (35.1-43.9); Red Blood Count 4.88 M/mm3 (4.6-6.2); White Blood Count 6.8 K/mm3 (4.4-11.0)
[2024-03-12 20:57] LABS: Prothrombin Time (Protime)PT. 13.6 SECONDS (11.7-14.9)
[2024-03-12 21:31] LABS: Alcohol, Blood (Medical)-Serum < 3.0 mg/dL
[2024-03-12 21:36] LABS: ALB/GLOB Ratio 1.4 RATIO (0.9-2.4); AST(SGOT) 22 U/L (15-37); Alanine Aminotransfer ALT/SGPT 30 U/L (16-61); Albumin, Serum 4.2 g/dL (3.2-5.0); Alkaline Phosphatase 59 U/L (45-117); Anion Gap 7 (5-15); BUN 9 mg/dL (7-18); BUN/Creat Ratio 8.3 RATIO (10-20); Calcium,Total 9.1 mg/dL (8.5-10.1); Chloride 103 mmol/L (98-107); Creatinine, Serum 1.08 mg/dL (0.70-1.30); EST Glomerular Filtration Rate 83 mL/min (>60); Est Glom Filt Rate - Afr Amer 101 mL/min (>60); Estimated Creatinine Clearance 100.45 ml/min; Globulin 3.1 g/dL (2.2-4.2); Glucose 112 mg/dL (74-106); Potassium 3.8 mmol/L (3.5-5.1); Protein, Total 7.3 g/dL (6.4-8.2); Sodium Level 137 mmol/L (136-145)
[2024-03-12 22:17] LABS: Amphetamine Urine VISTA POSITIVE (<1000 ng/mL); Barbiturate Urine VISTA NEGATIVE (< 200 ng/mL); Benzodiazepine Urine VISTA NEGATIVE (< 200 ng/mL); Cocaine Urine VISTA NEGATIVE (< 300 ng/mL); Ecstacy Urine VISTA NEGATIVE (< 500 ng/mL); Methadone Urine VISTA NEGATIVE (< 300 ng/mL); PCP Urine VISTA NEGATIVE (< 25 ng/mL); THC Urine VISTA NEGATIVE (< 50 ng/mL); Vista UDS pH Range 6
[2024-03-13 00:33] VITALS: BP 125/78; PULSE 99; RESP 16; TEMP 36.8; O2SAT 100
[2024-03-13 03:45] VITALS: BP 139/80; PULSE 90; RESP 16; TEMP 36.7; O2SAT 99
[2024-03-13] MEDS: Buprenorphine HCl 2 MG TAB.SUBL 6 MG SL (04:17)
[2024-03-13] MEDS: hydrOXYzine 50 MG/ML Vial 100 MG IM (04:17)
[2024-03-13 08:00] VITALS: BP 130/87; PULSE 98; RESP 18; TEMP 36.8; O2SAT 99
--- NOTE | 2024-03-13 10:08 | CASEMGMT ---
Social Work- SW met with pt to discuss any resources or supports that would be beneficial to pt, specifically in regards to mental health needs mentioned in H & P. Pt reports that he has previously attended individual psychotherapy and couples counseling in addition to substance abuse meetings. Pt reports that he received services through [facility] in the past for alcohol use. Pt reports that within the past few months, he has stopped attending AA and stopped prayer/meditation practices. Pt reports that his has high anxiety as well and pt feels guilty about taking time for his needs when he should be supporting her and his two toddlers outside of work. 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 Pt reports that he has a good relationship with PCP and has previously discussed psychotropic medications. Pt reports that he has a previously scheduled appointment on 03/16. Pt reports that he plans to discuss psychotropic medication with dr at that time. Pt discussed childhood mental health struggles and mother's beliefs in homeopathic remedies. Pt reports his gonzalo is a significant support to him. Pt reports is a support intermittently, as she struggles with anxiety herself and cares for their two toddlers. Pt does work multimedia project manager. Pt reports that he does not feel he needs to begin counseling at this time, as he feels when he starts AA and prayer/meditation again, that will help him regain stability. Pt indicates that he does not need any additional community resources at this time. SW to remain available for any additional needs that may arise. YEHUDA Man
--- NOTE | 2024-03-13 10:57 | PCM.DC ---
Discharge Instructions Diet Discharge Diet: No restrictions Activity Discharge Activity: No Restrictions Follow Up Care Test Results: Test results from this visit will be discussed in further detail at your follow-up appointment, if applicable. Discharge Plan Admission Admit Date/Time: 03/12/24 19:04 Primary Reason for Your Visit: kratom withdrawal Attending Provider: Pietro Ferreira Primary Care Provider: Primo Hunter Consulting Providers: Shira Campos Discharge Orders/Prescriptions Prescriptions: New hydroxyzine HCl 25 mg tablet 25 mg PO BID PRN (Reason: anxiety) 5 Days Qty: 10 0RF Continued dextroamphetamine-amphetamine 30 mg capsule,extended release 24hr 1 cap PO DAILY Referrals / Follow Up: Primo Hunter DO [Primary Care Provider] - Disposition Disposition (needs filled in before D/C Order can be placed): Home, Self Care
--- NOTE | 2024-03-13 10:57 | PCM.DC.SUM ---
Providers Date of Admission: 03/12/24 Date of Discharge: 03/13/24 Primary Care Physician: Dr. Primo Hunter, Reason For Visit: KRATOM DETOXIFICATION Diagnosis Discharge Diagnosis (1) Drug-induced paranoia or hallucinations: Status: Acute (2) Desire for detoxification: Status: Acute Medications at Discharge Home Medications dextroamphetamine-amphetamine ER 30 mg 24hr capsule,extend release 1 cap PO DAILY adhd 03/12/24 hydroxyzine HCl 25 mg tablet 25 mg PO BID PRN anxiety 5 days #10 tabs 03/13/24 Hospital Course Operations None Procedures None Summary of Care Provided Minutes Spent on Discharge: 25 Hospital Course: Patient is a 33-year-old male who presented to [facility] ED on 03/12/2024 for detoxification from kratom use. Short hospital course as noted below. Patient discharged home in stable condition on 03/13. 1. Kratom abuse with concern for withdrawal ? Reported using homeopathic medication kratom 15 g four times daily for the last 6 weeks. Was using this to treat his anxiety/depression as noted below. Had mild anxiety while inpatient but no other withdrawal symptoms. Prescribe short course of low-dose hydroxyzine as needed for anxiety on discharge. Outpatient PCP follow-up on 03/16 as noted below. Strongly encouraged kratom cessation. 2. Anxiety/depression and ADHD ? Per patient, has had intermittent symptoms of anxiety/depression for the last several years. Is with 2 young kids and life stressors are primary issue. Has been through marital counseling and individual counseling in the past. Has never been on an antidepressant medication and has been hesitant to start a daily antidepressant to this point due to concern for possible side effects, difficulty in discontinue medication, etc. Patient has PCP follow-up on 03/16 and is planning to discuss further counseling plus possibly starting a daily antidepressant at that visit. Okay to continue home Adderall on discharge. 3. Prior alcohol abuse ? Patient reported last drink was about 12 to 14 months ago. Encouraged continued cessation. Total clinical time spent by myself addressing the patient's medical issues, reviewing all the data, and collaborating with patient's care team: 25 minutes. Physical Exam Const alert, oriented x3 and no apparent distress HEENT normocephalic and head/scalp atraumatic Eyes PERRL and EOMs intact bilaterally Neck no lymphadenopathy Resp normal respiratory effort and no retractions Cardio regular rate and regular rhythm GI normal to inspection, nondistended, normoactive bowel sounds Extremity normal to inspection Neuro oriented x3 and CN's II-XII intact bilaterally Psych affect normal Weight / BMI Weight Weight: 74.1 kg Body Mass Index (BMI) 22.8 ABG / Lab / Microbiology Data 03/12/24 20:30 03/12/24 20:30 Laboratory: Laboratory Results - last 24 hr 03/12/24 15:05: WBC 7.6, RBC 4.79, Hgb 15.1, Hct 41.9, MCV 87.5, MCH 31.5, MCHC 36.0, RDW Std Deviation 36.7, RDW Coeff of Ciera 11.4 L, Plt Count 318, MPV 10.4, Immature Gran % (Auto) 0.300, Neut % (Auto) 84.5 H, Lymph % (Auto) 10.3 L, [place] % (Auto) 4.5, Eos % (Auto) 0.1, Baso % (Auto) 0.3, Absolute Neuts (auto) 6.4, Absolute Lymphs (auto) 0.78 L, Nucleated RBC % 0, Sodium 135 L, Potassium 3.6, Chloride 101, Carbon Dioxide 27.0, Anion Gap 7, BUN 9, Creatinine 1.25, Estim Creat Clear Calc 89.52, Est GFR (MDRD) Af Amer 85, Est GFR (MDRD) Non-Af 70, BUN/Creatinine Ratio 7.2 L, Glucose 127 H, Calcium 8.8, Total Bilirubin 0.40, AST 24, ALT 30, Alkaline Phosphatase 61, Total Protein 7.3, Albumin 4.2, Globulin 3.1, Albumin/Globulin Ratio 1.4 03/12/24 20:25: Urine Opiates Screen NEGATIVE, Urine Methadone Screen NEGATIVE, Ur Barbiturates Screen NEGATIVE, Ur Phencyclidine Scrn NEGATIVE, Ur Amphetamines Screen POSITIVE H, MDMA (Ecstasy) Screen NEGATIVE, U Benzodiazepines Scrn NEGATIVE, Urine Cocaine Screen NEGATIVE, U Cannabinoids Screen NEGATIVE, Ur Drug Screen Comment 03/12/24 20:30: WBC 6.8, RBC 4.88, Hgb 15.3, Hct 43.0, MCV 88.1, MCH 31.4, MCHC 35.6, RDW Std Deviation 36.6, RDW Coeff of Ciera 11.4 L, Plt Count 336, MPV 10.5, Immature Gran % (Auto) 0.100, Neut % (Auto) 76.4 H, Lymph % (Auto) 18.2 L, [place] % (Auto) 4.7, Eos % (Auto) 0.3, Baso % (Auto) 0.3, Absolute Neuts (auto) 5.2, Absolute Lymphs (auto) 1.24, Nucleated RBC % 0, PT 13.6, INR 1.0, Sodium 137, Potassium 3.8, Chloride 103, Carbon Dioxide 27.0, Anion Gap 7, BUN 9, Creatinine 1.08, Estim Creat Clear Calc 100.45, Est GFR (MDRD) Af Amer 101, Est GFR (MDRD) Non-Af 83, BUN/Creatinine Ratio 8.3 L, Glucose 112 H, Calcium 9.1, Total Bilirubin 0.50, AST 22, ALT 30, Alkaline Phosphatase 59, Total Protein 7.3, Albumin 4.2, Globulin 3.1, Albumin/Globulin Ratio 1.4, Ethyl Alcohol < 3.0 Meaningful Use Info Meaningful Use Meaningful Use Diagnoses (Choose all that apply): None applicable Ischemic Stroke Statin Dosing Therapy Reference: STATIN DOSE THERAPY REFERENCE: * Patients > 75 years receive moderate or high dose statin therapy. * Patients 75 years or YOUNGER should receive HIGH intensity statin dose unless contraindicated. You will be required to document reason for non-treatment if statin daily dose does not meet guidelines. HIGH DOSE STATIN THERAPY DAILY Atorvastatin > than or = to 40 mg Rosuvastatin > than or = to 20 mg Amlodipine + Atorvastatin > than or = to 2.5/40 mg Ezetimibe + Simvastatin 10/80 mg Simvastatin 80mg Discharge Plan Admission Admit Date/Time: 03/12/24 19:04 Primary Reason for Your Visit: kratom withdrawal Attending Provider: Pietro Ferreira Primary Care Provider: Primo Hunter Consulting Providers: Shira Campos Discharge Orders/Prescriptions Prescriptions: New hydroxyzine HCl 25 mg tablet 25 mg PO BID PRN (Reason: anxiety) 5 Days Qty: 10 0RF Continued dextroamphetamine-amphetamine 30 mg capsule,extended release 24hr 1 cap PO DAILY Referrals / Follow Up: Primo Hunter, [Primary Care Provider] - Disposition Disposition (needs filled in before D/C Order can be placed): Home, Self Care Charges/Coding Visit Charges Inpatient E&M: 81429 Disch Hosp
--- NOTE | 2024-03-13 10:59 | CASEMGMT ---
Social Work- SW met with pt and discussed advanced directives. Pt does not have directives and is not interested in completing at this time. YEHUDA Man
--- NOTE | 2024-03-13 11:54 | PHA.DC.MC.R ---
Pharmacy [facility] has performed discharge medication reconciliation and counseling for this patient. 1. HYDROXYZINE 25MG PO BID PRN ANXIETY The patient's discharge medication list was reviewed for discrepancies and discrepancies were resolved. The patient was counseled on the following discharge medications and changes in medications for homegoing were reviewed. The Reason for Use, instructions for use, and potential side effects were reviewed for all new medications. The patient's questions regarding all of their medications were answered. The patient was able to verbally demonstrate an understanding of their discharge medications. Patient counseled by registered pharmacy technicianShaji. Medications at Discharge Home Medications dextroamphetamine-amphetamine ER 30 mg 24hr capsule,extend release 1 cap PO DAILY adhd 03/12/24 hydroxyzine HCl 25 mg tablet 25 mg PO BID PRN anxiety 5 days #10 tabs 03/13/24
--- NOTE | 2024-03-13 12:17 | CASEMGMT ---
Social Work- SW met with pt who mentioned to nurse that he would like a pysch eval. SW met with pt who states that he feels he needs to meet with [facility] or have a psych eval prior to d/c to show that he is being thorough is seeking help and for his to have peace of mind, as pt was having delusions and hallucinations prior to stopping the kratom. Pt denies any hallucinations or delusions since stopping kratom and states that he his hallucinations were not suicidal or homicidal in nature. Pt reports that he was paranoid at night with kratom and hallucinations and delusions were thinking someone was on the property or that he heard or saw things that weren't there. Pt reports that he realized it was the kratom. Pt reports no suicidal ideation or thoughts of self harm at that time or currently. Pt reports that he does not think about going to sleep and not waking up. Pt reports that he does not feel hopeless or like giving up. Pt reports that he does not feel his family would be better off if he , although he does report guilt over being in hospital while is caring for kids and that he does want to show that he is seeking all the help possible due to feeling shame of addictive tendencies. Pt reports no feelings of wanting to harm others. Pt reports he is not depressed or anxious beyond baseline. Pt declines wanting SW to schedule a psych eval through crisis at [facility]. Pt declines a list of mental health providers. Pt reports that he has a counselor through [facility] and does not want connected to another agency and does not feel he needs a crisis appointment, as he is more concerned about being thorough in seeking supports than feeling dysregulated. Pt speaks with full affect and free speech and is observed to have normal thought flow and thought content, showing regulated state at time of visit. Pt was looking on phone at [facility] web site to find a number to schedule appointment. Pt agreeable to SW calling [facility] to see when counselor is going to be making visits. SW called [facility] to clarify when visits would be made today d/t pending d/c. Astrid will be making visits at 1pm. Pt notified. Peer to peer through [facility] is meeting with pt at time of this documentation. YEHUDA Man
--- NOTE | 2024-03-13 14:00 | ADDICTION ---
clinician met with client for follow up. client presented as cooperative and pleasant. clinician answered questions about services at [facility]; he currently see Dr. Nazia Orr. client is possibly interested in MAT and psych med management services. clinician advised client to speak with Dr. Orr about these services offered for referral. client appears to be in the preparation stage of change, however, lacks knowledge about the disease of addiction.
[2024-03-13 14:18] VITALS: BP 110/65; PULSE 54; RESP 18; TEMP 36.8; O2SAT 98
== END 2024-03-13 14:18 | disposition home or self-care (01) ==
LOC: ED 18:37 → MS3 22:54
PROVIDERS: Physician Assistant; Admitting Provider Internal Medicine; Emergency Provider Emergency Medicine; PCP Family Medicine; Visit Provider Hospitalist
DX: F19.288 Other psychoactive substance dependence with other psychoactive substance-induced disorder (principal); F41.9 Anxiety disorder, unspecified; F17.290 Nicotine dependence, other tobacco product, uncomplicated; F32.A Depression, unspecified; F90.9 Attention-deficit hyperactivity disorder, unspecified type; Z79.899 Other long term (current) drug therapy
CPT/HCPCS: 80053; 80307; 82077; 85025; 85610; 96372; 99221; 99283; 99406; A4216; G0378

== ENCOUNTER → 2024-03-30 | Outpatient (CLI) | payer OTHER, SELFPAY ==
[2024-03-30 18:38] LABS: Amphetamine Urine VISTA POSITIVE (<1000 ng/mL); Barbiturate Urine VISTA NEGATIVE (< 200 ng/mL); Benzodiazepine Urine VISTA NEGATIVE (< 200 ng/mL); Cocaine Urine VISTA NEGATIVE (< 300 ng/mL); Ecstacy Urine VISTA NEGATIVE (< 500 ng/mL); Methadone Urine VISTA NEGATIVE (< 300 ng/mL); PCP Urine VISTA NEGATIVE (< 25 ng/mL); THC Urine VISTA NEGATIVE (< 50 ng/mL); Vista UDS pH Range 8
== END | disposition home or self-care (01) ==
PROVIDERS: PCP Family Medicine; Referring Provider Family Medicine; Visit Provider Family Medicine
DX: F19.10 Other psychoactive substance abuse, uncomplicated (principal); Z79.899 Other long term (current) drug therapy
CPT/HCPCS: 80307

== ENCOUNTER → 2024-06-09 | Outpatient (CLI) | payer OTHER, SELFPAY ==
[2024-06-09 14:40] LABS: Amphetamine Urine VISTA POSITIVE (<1000 ng/mL); Barbiturate Urine VISTA NEGATIVE (< 200 ng/mL); Benzodiazepine Urine VISTA NEGATIVE (< 200 ng/mL); Cocaine Urine VISTA NEGATIVE (< 300 ng/mL); Ecstacy Urine VISTA NEGATIVE (< 500 ng/mL); Methadone Urine VISTA NEGATIVE (< 300 ng/mL); PCP Urine VISTA NEGATIVE (< 25 ng/mL); THC Urine VISTA NEGATIVE (< 50 ng/mL); Vista UDS pH Range 7
== END | disposition home or self-care (01) ==
PROVIDERS: PCP Family Medicine; Referring Provider Family Medicine; Visit Provider Family Medicine
DX: F19.11 Other psychoactive substance abuse, in remission (principal); Z79.899 Other long term (current) drug therapy
CPT/HCPCS: 80307

== ENCOUNTER → 2024-10-19 | Outpatient (CLI) | payer OTHER, SELFPAY ==
[2024-10-19 17:53] LABS: Amphetamine Urine POSITIVE (<1000 ng/mL); Barbiturate Urine VISTA NEGATIVE (< 200 ng/mL); Benzodiazepine Urine VISTA NEGATIVE (< 200 ng/mL); Cocaine Urine VISTA NEGATIVE (< 300 ng/mL); Ecstacy Urine VISTA POSITIVE (< 500 ng/mL); Methadone Urine VISTA NEGATIVE (< 300 ng/mL); Opiates Urine NEGATIVE (< 300 ng/mL); PCP Urine NEGATIVE (< 25 ng/mL); THC Urine VISTA NEGATIVE (< 50 ng/mL); Vista UDS pH Range 6
== END | disposition home or self-care (01) ==
PROVIDERS: PCP Family Medicine; Visit Provider Family Medicine
DX: Z79.899 Other long term (current) drug therapy (principal)
CPT/HCPCS: 80307

== ENCOUNTER → 2025-01-23 | Outpatient (CLI) | payer OTHER, SELFPAY ==
[2025-01-23 16:55] LABS: Hemoglobin A1c 5.2 % (<=5.6)
[2025-01-23 17:12] LABS: ALB/GLOB Ratio 1.7 RATIO (0.9-2.4); AST(SGOT) 44 U/L (<=37); Absolute Lymphocyte Count 1.43 X10^3/uL (0.83-4.51); Absolute Neutrophil Count 5.1 X10^3/uL (2.0-7.7); Alanine Aminotransfer ALT/SGPT 47 U/L (<=46); Alkaline Phosphatase 95 U/L (40-129); Anion Gap 9 (5-15); BUN 9 mg/dL (4-19); BUN/Creat Ratio 7.4 RATIO (10-20); Basophil# 0.06 X10^3/uL; Basophil% 0.8 % (0-1); Calcium,Total 8.5 mg/dL (7.6-11.0); Carbon Dioxide 24.7 mmol/L (21.0-32.0); Chloride 102 mmol/L (98-108); Cholesterol 96 mg/dL (<=200); Creatinine, Serum 1.17 mg/dL (0.70-1.20); EST Glomerular Filtration Rate 84 (>60); Eosinophil# 0.18 X10^3/uL; Eosinophils% 2.5 % (0-5); Globulin 2.4 g/dL (2.2-4.2); Glucose 96 mg/dL (70-99); Hemoglobin 14.4 g/dL (13.0-16.5); High Density Lipoprotein 39 mg/dL; Low Density Lipoprotein Calc. 33 mg/dL; Lymphocyte # 1.43 X10^3/ul (0.83-4.51); Lymphocyte % 19.6 % (19-41); Mean Corp Hgb Conc 35.1 g/dL (32-36); Mean Corpuscular Hgb 31.4 pg (27.0-32.0); Mean Corpuscular Volume 89.3 fL (80-94); Mean Platelet Vol. 10.3 fl (6.2-12.0); Monocyte# 0.55 X10^3/uL; Monocyte% 7.5 % (0-10); NRBC Flagged by Analyzer 0 % (0-5); Neutrophil # 5.05 X10^3/uL (2.7-7.7); Neutrophil % 69.3 % (47-70); Platelet Count 331 K/mm3 (150-450); Potassium 4.5 mmol/L (3.3-5.1); Protein, Total 6.4 g/dL (5.9-8.4); RBC Distribution Width CV 12.1 % (11.6-14.6); RBC Distribution Width SD 39.4 fl (35.1-43.9); Red Blood Count 4.59 M/mm3 (4.6-6.2); Sodium Level 136 mmol/L (133-145); Thyroid Stim Hormone (TSH) 0.814 uIU/mL (0.300-4.200); Total Bilirubin 0.25 mg/dL (0.00-1.30); Triglycerides 122 mg/dL; Very Low Density Lipoprotein 24 mg/dL (5-40); Vitamin B12 1644 pg/mL (180-914); Vitamin D,25 Hydroxy 31.3 ng/mL (30-100); White Blood Count 7.3 K/mm3 (4.4-11.0); cholesterol:hdl ratio screen 2.49
== END | disposition home or self-care (01) ==
PROVIDERS: PCP Nurse Practitioner Family; Visit Provider Nurse Practitioner Family
DX: F32.9 Major depressive disorder, single episode, unspecified (principal)
CPT/HCPCS: 36415; 80053; 80061; 82306; 82607; 83036; 84443; 85025